=== PATIENT | male | born 1955 | race Hispanic/Latino ===

== ENCOUNTER 2020-06-16 15:42 | Outpatient (CLI) | payer OTHER ==
--- NOTE | 2020-06-16 16:49 | RAD ---
TWO VIEW ABDOMEN: 06/16/20 Supine and upright views. HISTORY: Left lower quadrant pain. FINDINGS: Scattered stool and gas throughout colon. Small bowel gas pattern appears normal. No mass effect. No free air. No abnormal calcification. IMPRESSION: Unremarkable bowel gas pattern. POS: AGW
== END 2020-06-16 15:43 | disposition home or self-care (01) ==
LOC: NAV RAD 15:42
PROVIDERS: ATTEND Family Medicine
DX: R10.32 Left lower quadrant pain (principal)
CPT/HCPCS: 74019